=== PATIENT | male | born 2005 | race African-American/Black ===

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

== ENCOUNTER 2023-03-15 10:46 | Emergency (ER) | payer MEDICAID, OTHER, SELFPAY ==
[2023-03-15] MEDS ORDERED: Ketorolac Tromethamine 30 MG (1 mL) VIAL ONE (11:22)
[2023-03-15 11:39] LABS: Bilirubin Neg (Negative); Blood, Urine Negative (Negative); Clarity Clear (Clear); Glucose, Urine (Dipstick) Normal (Negative); Ketone, Urine Negative (Negative); Leukocyte Negative (Negative); Nitrite Negative (Negative); Protein, Urine (Dipstick) Negative (Neg-Trace); Specific Gravity, Urine 1.005 (1.005-1.030)
[2023-03-15 11:45] LABS: ALT (SGPT) 18 U/L (8-55); AST (SGOT) 27 U/L (10-45); Albumin 4.2 g/dL (3.5-5.0); Alkaline Phosphatase 76 U/L (50-130); Anion Gap 13 mmol/L (10-20); BUN (Urea Nitrogen) 9 mg/dL (8.4-21.0); Bilirubin, Total 1.6 mg/dL (0.2-1.2); Calc. Creatinine Clearance 0 mL/min (70-130); Calcium 8.9 mg/dL (7.8-10.44); Carbon Dioxide 24 mmol/L (22-29); Chloride 107 mmol/L (98-107); Estimated GFR 129; Globulin 3.8 g/dL (2.4-3.5); Glucose 85 mg/dL (70-105); Sodium 140 mmol/L (136-145)
[2023-03-15 11:46] LABS: #Eosinphils 0.3 10x3/uL (0.0-0.5); #Monocytes 0.9 10x3/uL (0.0-1.1); #Neutrophils 2.8 10x3/uL (1.5-8.4); %Basophils 0.3 % (0.0-2.0); %Eosinophils 3.8 % (0.0-6.0); %Lymphocytes 41.3 % (18.0-47.0); %Monocytes 13.8 % (0.0-10.0); %Neutrophils 40.7 % (40.0-75.0); Hematocrit 32.2 % (38.8-50.0); Hemoglobin 11.7 g/dL (13.5-17.5); Mean Corpuscular HGB CONC 36.3 g/dL (32.0-36.0); Mean Corpuscular Hemoglobin 25.3 pg (27.0-33.0); Mean Corpuscular Volume 69.5 fl (81.2-95.1); Mean Platelet Volume 10.1 fl (7.4-10.4); Platelet Count 311 10x3/uL (150-450); RBC Distribution Width 17.8 % (11.5-14.5); Red Blood Cell (RBC) Count 4.63 10x6/uL (4.32-5.72); White Blood Cell (WBC) Count 6.8 10x3/uL (3.5-10.5)
[2023-03-15 12:24] LABS: Bacteria/HPF None Seen HPF (None Seen); CAUTI Indications for Culture Pelvic or flank pain; RBC/HPF None Seen HPF (0-3); Squamous Epithelial None Seen HPF (0-3); Urine Culture Reflex No No; WBC/HPF None Seen HPF (0-3)
[2023-03-15] MEDS ORDERED: Morphine 4 MG/ML VIAL ONE (12:30)
[2023-03-15 13:04] LABS: SARS-CoV-2 NAA Rapid Test Not Detected (NotDetected)
[2023-03-15 13:27] LABS: Microcytosis SLIGHT = 6-15 cells (100X) (0-5/hpf)
== END 2023-03-15 13:00 | disposition home or self-care (01) ==
LOC: CSHERS 10:46
DX: D57.1 Sickle-cell disease without crisis (principal)
CPT/HCPCS: 80053; 81001; 83605; 85025; 85046; 96374; 96375; J1885; J2270